=== PATIENT | female | born 1940 | race Hispanic/Latino ===

== ENCOUNTER 2021-08-30 09:33 | Emergency (ER) | payer MEDICARE ==
[~2021-08-30] VITALS: Ht 152.4 cm; Wt 99.8 kg
[2021-08-30] MEDS ORDERED: ACETAMINOPHEN 500 MG TABLET PO ONE (10:00)
[2021-08-30 10:15] LABS: BASOPHILS % (AUTO) 0.8 % (0.0-5.0); EOSINOPHILS % (AUTO) 2.7 % (0.0-8.0); HEMATOCRIT 42.7 % (36-48); MEAN CORPUSCULAR HEMOGLOBIN 32.9 pg (27.0-33.0); MEAN CORPUSCULAR HGB CONC 33.7 g/dL (32.0-36.0); MEAN CORPUSCULAR VOLUME 97.5 fL (79-99); NEUTROPHILS % (AUTO) 69.1 % (40.0-77.0); PLATELET COUNT (AUTO) 102 K/uL (130-400); RED BLOOD CELL COUNT(AUTO) 4.38 MIL/uL (4.00-5.50); RED CELL DISTRIBUTION WIDTH 13.3 % (11.0-15.5); WHITE BLOOD COUNT (AUTO) 5.3 K/uL (4.8-10.8)
[2021-08-30 10:25] LABS: ALBUMIN 3.6 g/dL (3.5-5.0); BILIRUBIN,TOTAL 1.4 mg/dL (0.2-1.0); TOTAL PROTEIN, SERUM 7.3 g/dL (6.0-8.3)
[2021-08-30] MEDS ORDERED: ACET-66 PO (10:42)
[2021-08-30] MEDS ORDERED: ONDA-104 PO (10:42)
[2021-08-30 11:17] VITALS: BP 164/73
== END 2021-08-30 11:19 | disposition home or self-care (01) ==
LOC: EDH 09:33
DX: S00.03XA Contusion of scalp, initial encounter (principal); E11.9 Type 2 diabetes mellitus without complications; I11.9 Hypertensive heart disease without heart failure; Z79.01 Long term (current) use of anticoagulants; Z79.899 Other long term (current) drug therapy; Z86.73 Personal history of transient ischemic attack (TIA), and cerebral infarction without residual deficits; Z95.0 Presence of cardiac pacemaker; X58.XXXA Exposure to other specified factors, initial encounter; Y93.89 Activity, other specified; Y92.89 Other specified places as the place of occurrence of the external cause; Y99.8 Other external cause status
CPT/HCPCS: 36415; 70450; 71045; 72125; 80053; 84484; 85025; 93005

== ENCOUNTER 2022-04-17 14:10 | Emergency (ER) | payer MEDICARE ==
[~2022-04-17] VITALS: Ht 154.9 cm; Wt 84.4 kg
[~2022-04-17 14:10] MED LIST: ACET-66 PO; CARV6.25 PO; CLOP-31 PO; ESCI20TA PO; FURO40TA7 PO; IRON1CAP32 PO; ONDA-104 PO; PREG50CA63 PO; SACU1TAB PO; SPIR50TA5 PO; TRAM50TA4 PO; ZOLP5TAB2 PO
[2022-04-17 14:21] VITALS: BP 130/68
[2022-04-17 15:25] LABS: BASOPHILS % (AUTO) 0.8 % (0.0-5.0); EOSINOPHILS % (AUTO) 3.1 % (0.0-8.0); HEMATOCRIT 40.5 % (36-48); LYMPHOCYTES % (AUTO) 21.5 % (21.0-51.0); MEAN CORPUSCULAR HEMOGLOBIN 33.2 pg (27.0-33.0); MEAN CORPUSCULAR HGB CONC 34.6 g/dL (32.0-36.0); MONOCYTES % (AUTO) 7.2 % (3.0-13.0); NEUTROPHILS % (AUTO) 67.1 % (40.0-77.0); PLATELET COUNT (AUTO) 105 K/uL (130-400); RED BLOOD CELL COUNT(AUTO) 4.22 MIL/uL (4.00-5.50); RED CELL DISTRIBUTION WIDTH 11.9 % (11.0-15.5); WHITE BLOOD COUNT (AUTO) 6.5 K/uL (4.8-10.8)
[2022-04-17 15:52] LABS: CREATININE 1.6 mg/dL (0.5-1.5); POTASSIUM 5.6 mmol/L (3.5-5.1)
[2022-04-17 16:01] LABS: ALBUMIN 3.8 g/dL (3.5-5.0); TOTAL PROTEIN, SERUM 8.1 g/dL (6.0-8.3)
== END 2022-04-17 17:30 | disposition home or self-care (01) ==
LOC: EDH 14:10
DX: L97.519 Non-pressure chronic ulcer of other part of right foot with unspecified severity (principal); I25.10 Atherosclerotic heart disease of native coronary artery without angina pectoris; I25.2 Old myocardial infarction; I10 Essential (primary) hypertension; E11.9 Type 2 diabetes mellitus without complications; Z95.0 Presence of cardiac pacemaker; Z95.1 Presence of aortocoronary bypass graft; Z79.899 Other long term (current) drug therapy
CPT/HCPCS: 36415; 73630; 80053; 85025; 93925

== ENCOUNTER 2022-05-15 07:04 | Day surgery (SDC) | payer MEDICARE ==
[2022-05-14 13:18] LABS: BASOPHILS % (AUTO) 0.7 % (0.0-5.0); EOSINOPHILS % (AUTO) 2.1 % (0.0-8.0); HEMATOCRIT 40.5 % (36-48); LYMPHOCYTES % (AUTO) 18.9 % (21.0-51.0); MEAN CORPUSCULAR HEMOGLOBIN 32.8 pg (27.0-33.0); MEAN CORPUSCULAR HGB CONC 34.6 g/dL (32.0-36.0); MEAN CORPUSCULAR VOLUME 94.8 fL (79-99); MONOCYTES % (AUTO) 6.9 % (3.0-13.0); NEUTROPHILS % (AUTO) 71.1 % (40.0-77.0); PLATELET COUNT (AUTO) 95 K/uL (130-400); RED BLOOD CELL COUNT(AUTO) 4.27 MIL/uL (4.00-5.50); RED CELL DISTRIBUTION WIDTH 12.1 % (11.0-15.5); WHITE BLOOD COUNT (AUTO) 6.1 K/uL (4.8-10.8)
[2022-05-14 13:27] LABS: CREATININE 1.2 mg/dL (0.5-1.5); POTASSIUM 4.8 mmol/L (3.5-5.1)
[2022-05-14 13:34] LABS: INR 1.05 (0.85-1.15); PROTHROMBIN TIME 11.4 SEC (9.6-11.6)
[2022-05-14 13:35] LABS: PARTIAL THROMBOPLASTIN TIME 28.7 SEC (26.3-35.5)
[2022-05-14 13:43] VITALS: BP 129/74
[2022-05-14 13:44] LABS: B-TYPE NATRIURETIC PEPTIDE 640 pg/mL (0-100)
[~2022-05-15] VITALS: Ht 154.9 cm; Wt 80.0 kg
[2022-05-15] VITALS (10 sets, daily range): BP systolic 115–150; BP diastolic 42–72
[~2022-05-15 07:04] MED LIST changes: +0.9% NACL 500ML IV.SOLN 500 ML IV SCH; -ACET-66 PO; +CARV25TA PO; -CARV6.25 PO; +CEPH500C2 PO; +METF-446 PO; -ONDA-104 PO; +ROSU10TA28 PO; -SACU1TAB PO; +ZOLP10TA2 PO; -ZOLP5TAB2 PO
[2022-05-15 07:47] LABS: BASOPHILS % (AUTO) 0.6 % (0.0-5.0); EOSINOPHILS % (AUTO) 3.5 % (0.0-8.0); LYMPHOCYTES % (AUTO) 26.7 % (21.0-51.0); MEAN CORPUSCULAR HGB CONC 34.7 g/dL (32.0-36.0); MONOCYTES % (AUTO) 8.9 % (3.0-13.0); NEUTROPHILS % (AUTO) 59.9 % (40.0-77.0); PLATELET COUNT (AUTO) 90 K/uL (130-400); WHITE BLOOD COUNT (AUTO) 4.8 K/uL (4.8-10.8)
[2022-05-15] MEDS ORDERED: 0.9%NACL 1000ML 1,000 ML IV ONE (09:01)
[2022-05-15] MEDS ORDERED: NICARDIPINE 25MG INJ IV ONE (11:15)
[2022-05-15] MEDS ORDERED: NITROGLYCERIN 50MG VIAL ONE (11:15)
[2022-05-15] MEDS ORDERED: MIDAZOLAM HCL 1 MG/ML 2ML VIAL ONE ×2 (11:15→13:24)
[2022-05-15] MEDS ORDERED: HEPARIN 10,000 UNIT/10ML (1,000 UNIT/ML) VIAL ONE (11:15)
[2022-05-15] MEDS ORDERED: IODIXANOL 320 MG/ML 100 ML VIAL ONE (11:15)
[2022-05-15] MEDS ORDERED: LIDOCAINE HCL 400MG/20ML VIAL ONE (11:16)
[2022-05-15] MEDS ORDERED: FENTANYL CITRATE PF 50 MCG/1 ML 2ML VIAL ONE (11:16)
[2022-05-15] MEDS ORDERED: CLOPIDOGREL 300MG TAB ONE (12:37)
[2022-05-15] MEDS ORDERED: 0.9%NACL 1000ML 1,000 ML IV SCH (14:00)
== END 2022-05-15 17:52 | disposition home or self-care (01) ==
LOC: DAH 07:04
PROVIDERS: ATTEND Internal Medicine Cardiovascular Disease
DX: I70.238 Atherosclerosis of native arteries of right leg with ulceration of other part of lower leg (principal); E11.51 Type 2 diabetes mellitus with diabetic peripheral angiopathy without gangrene; I70.92 Chronic total occlusion of artery of the extremities; I10 Essential (primary) hypertension; E78.5 Hyperlipidemia, unspecified; I25.10 Atherosclerotic heart disease of native coronary artery without angina pectoris; I48.0 Paroxysmal atrial fibrillation; Z79.899 Other long term (current) drug therapy; Z79.01 Long term (current) use of anticoagulants; Z79.84 Long term (current) use of oral hypoglycemic drugs; Z79.82 Long term (current) use of aspirin; Z98.890 Other specified postprocedural states; Z83.3 Family history of diabetes mellitus
CPT/HCPCS: 80048; 83880; 85025 ×2; 85610; 85730; 36415 ×2; 71045; 93005; 75716; 82948 ×3; C9766; C1725; C1894 ×2; C1769 ×3; C1760; C1893; C1887; C1724; C2623; J3010; J3490 ×3; J7030; J1644 ×3; J2250 ×2; Q9967; A4215; A4222; A4221; A4663; A4216; A4606; A4223 ×3; 99156; 99157